=== PATIENT | male | born 1960 | race Caucasian/White ===

== ENCOUNTER 2019-09-01 09:59 | Outpatient (CLI) | payer BC ==
--- NOTE | 2019-09-01 16:03 | XRAY Report ---
Reason: PAINFUL LEFT THUMB CMC JOINT OA Procedure Date: 09/01/2019 Accession Number: [id number] / [id number] Procedure: XR - Finger(s) LT CPT Code: Final Report FULL RESULT: EXAM: LEFT FIRST DIGIT RADIOGRAPHY EXAM DATE: 09/01/2019 10:28 AM. CLINICAL HISTORY: PAINFUL LEFT THUMB, CMC JOINT OA. COMPARISON: None. TECHNIQUE: 1 view. FINDINGS: Bones: No acute fracture is demonstrated. There is a surgical anchor at the base of the first metacarpal, which may represent sequela of previous ligament or tendon repair. Joints: No dislocation or subluxation demonstrated. The first CMC joint is better assessed on wrist radiograph. Soft Tissues: Unremarkable. IMPRESSION: No acute osseous or articular abnormality by single AP view of the left first finger. Please refer to dedicated wrist radiograph for further details on the first CMC joint. RADIA
--- NOTE | 2019-09-01 16:06 | XRAY Report ---
Reason: resection arthroplasty, thumb pain Procedure Date: 09/01/2019 Accession Number: [id number] / [id number] Procedure: XR - Wrist 3 View LT CPT Code: Final Report FULL RESULT: EXAM: LEFT WRIST RADIOGRAPHY EXAM DATE: 09/01/2019 10:28 AM. CLINICAL HISTORY: Resection arthroplasty, thumb pain. COMPARISON: None. TECHNIQUE: 3 views. FINDINGS: Bones: The trapezium has been resected. There is mild sclerosis at the base of the first metacarpal, which may represent sequela of previous first CMC joint arthritis. A surgical anchor is present at the lateral (radial) base of the first metacarpal. Joints: Overall alignment is within normal limits. No significant degenerative change demonstrated elsewhere in the left wrist. Soft Tissues: Unremarkable. IMPRESSION: Absence of the left trapezium, compatible with history of resection arthroplasty. No acute osseous or articular abnormality demonstrated. RADIA
== END 2019-09-01 10:00 | disposition home or self-care (01) ==
LOC: DI 09:59
PROVIDERS: ATTEND Orthopaedic Surgery
DX: M79.645 Pain in left finger(s) (principal); M18.12 Unilateral primary osteoarthritis of first carpometacarpal joint, left hand; Z98.890 Other specified postprocedural states
CPT/HCPCS: 73140

== ENCOUNTER 2019-11-02 20:00 | Outpatient (CLI) | payer BC ==
--- NOTE | 2019-11-04 03:32 | XRAY Report ---
Reason: Left wrist pain, left thumb CMC joint subluxation, early OA Procedure Date: 11/02/2019 Accession Number: [id number] / [id number] Procedure: XR - Wrist 4 View LT CPT Code: Final Report FULL RESULT: EXAM: LEFT WRIST RADIOGRAPHY EXAM DATE: 11/02/2019 08:43 PM. CLINICAL HISTORY: Left wrist pain, left thumb CMC joint subluxation, early OA. COMPARISON: WRIST 3 VIEW LT 09/01/2019 10:14 AM. TECHNIQUE: 4 views. FINDINGS: Bones: No fracture seen. No focal area of bone destruction. There appears to be resection of the trapezium. Metal anchor at the base of the first metacarpal. Joints: No dislocation seen. Minimal degenerative changes are suspected at the articulation between the scaphoid and the trapezoid. Mild irregularity at the base of the first metacarpal probably due to degenerative changes. Soft Tissues: Mild soft tissue swelling. IMPRESSION: 1. Resection of the trapezium. 2. No acute abnormality seen. RADIA
== END 2019-11-02 20:01 | disposition home or self-care (01) ==
LOC: DI 20:00
PROVIDERS: ATTEND Orthopaedic Surgery
DX: M25.532 Pain in left wrist (principal); M18.12 Unilateral primary osteoarthritis of first carpometacarpal joint, left hand

== ENCOUNTER 2021-07-06 11:32 | Outpatient (CLI) | payer BC ==
--- NOTE | 2021-07-06 14:53 | XRAY Report ---
PROCEDURE: Lumbar Spine 2 View INDICATIONS: LUMBAR SPINE 2 VEIW TECHNIQUE: 3 views of the lumbar spine were acquired. COMPARISON: None. FINDINGS: Bones: 5 [id number] vertebrae are present. There is trace retrolisthesis of L3 on L4. Severe d isc space narrowing is present at L5-S1. Minimal foraminal narrowing is noted. No vertebral body comp ression fractures. No suspicious bony lesions. Soft tissues: Overlying bowel gas pattern is normal. No suspicious soft tissue calcifications. IMPRESSION: Degenerative changes most notable at L5-S1. Reviewed by: Renetta See MD on 07/06/2021 2:51 PM PST Approved by: Renetta See MD on 07/06/2021 2:51 PM PST Station ID: [id number]
== END 2021-07-06 11:33 | disposition home or self-care (01) ==
LOC: DI 11:32
DX: M43.16 Spondylolisthesis, lumbar region (principal); M51.37 Other intervertebral disc degeneration, lumbosacral region

== ENCOUNTER 2021-09-01 11:11 | Outpatient (CLI) | payer BC ==
--- NOTE | 2021-09-02 13:45 | MRI Report ---
PROCEDURE: Lumbar Spine W/O INDICATIONS: SPONDYLOSIS OF LUMBAR SPINE TECHNIQUE: Noncontrast sagittal T1 spin echo and T2 fast echo, sagittal STIR, axial T1 and T2 fast spin echo thr ough the lumbar spine. In cases with scoliosis, additional coronal T2 fast spin echo may be performe d. COMPARISON: None. FINDINGS: In the L1 vertebral body there is a 1.7 cm lesion which demonstrates low T1 signal intensity and elev ated T2 signal with increase in relative signal compared with the adjacent normal marrow on the fat-s uppressed images. This likely represents a lipid poor hemangioma, although this is not definitive. Re cently obtained x-rays from 07/06/2021 demonstrate no corresponding suspicious lytic or blastic lesion . Otherwise normal bone marrow signal intensity. Normal vertebral body height and alignment. Normal pos ition and appearance of the conus. Regional soft tissues are normal. T12-L1: No spinal canal or neural foraminal stenosis. L1-L2: No spinal canal or neural foraminal stenosis. L2-L3: No spinal canal or neural foraminal stenosis. L3-L4: No spinal canal or neural foraminal stenosis. L4-L5: Disc bulge flattens the ventral thecal sac without significant mass effect upon the traversi ng L5 nerve roots. There is a synovial cyst arising from the medial margin of the right L4-L5 facet m easuring approximately 8 mm, which mildly displaces the descending right L5 nerve root anteriorly, an d combines with the disc bulge to produce overall moderate right subarticular zone stenosis. There is no neural foraminal narrowing. Overall moderate facet hypertrophy with small facet effusions and sub chondral cystic change. L5-S1: Disc bulge flattens the ventral thecal sac and mildly displaces the descending S1 nerve root s within both subarticular zones. Mild bilateral neural foraminal stenosis. IMPRESSION: Facet osteoarthritis at the L4-L5 with an associated 8 mm synovial cyst arising from the medial preethi n of the right L4-L5 facet, which displaces the descending right L5 nerve roots and contributes to mo derate right subarticular zone stenosis. 4 likely corresponding right L5 reticular symptoms. Reviewed by: Kan Medina MD on 09/02/2021 1:43 PM PST Approved by: Kan Medina MD on 09/02/2021 1:43 PM PST Station ID: [id number]
== END 2021-09-01 11:12 | disposition home or self-care (01) ==
LOC: DI 11:11
PROVIDERS: ATTEND Orthopaedic Surgery
DX: M47.816 Spondylosis without myelopathy or radiculopathy, lumbar region (principal); M71.38 Other bursal cyst, other site; M48.07 Spinal stenosis, lumbosacral region; M48.061 Spinal stenosis, lumbar region without neurogenic claudication

== ENCOUNTER 2021-11-04 22:14 | Observation (INO) | payer BC ==
[2021-11-04 22:42] LABS: BASOPHILS % (AUTO) 0.7 %; EOSINOPHILS # (AUTO) 0.2 10^3/uL (0.0-0.7); EOSINOPHILS % (AUTO) 4.2 %; HCT - HEMATOCRIT 42.9 % (42.0-52.0); HGB - HEMOGLOBIN 14.4 g/dL (14.0-18.0); LYMPHOCYTES # (AUTO) 1.9 10^3/uL (1.5-3.5); LYMPHOCYTES % (AUTO) 33.4 %; MEAN CORPUSCULAR HEMOGLOBIN 30.2 pg (27.0-31.0); MEAN CORPUSCULAR HGB CONC 33.6 g/dL (32.0-36.0); MEAN CORPUSCULAR VOLUME 89.9 fL (80.0-94.0); MONOCYTES # (AUTO) 0.5 10^3/uL (0.0-1.0); MONOCYTES % (AUTO) 8.1 %; NEUTROPHILS % (AUTO) 52.9 %; PLT - PLATELET COUNT 272 10^3/uL (130-450); RED BLOOD COUNT 4.77 10^6/uL (4.70-6.10); RED CELL DISTRIBUTION WIDTH 12.5 % (12.0-15.0); WHITE BLOOD COUNT 5.7 x10^3/uL (4.8-10.8)
[2021-11-04] MEDS ORDERED: ASPIRIN CHEW 81 MG TABLET PO STA (22:43)
[2021-11-04 22:58] LABS: ALBUMIN 4.2 g/dL (3.2-5.5); ALBUMIN/GLOBULIN RATIO 1.4 (1.0-2.2); BILIRUBIN,TOTAL 0.6 mg/dL (0.2-1.0); CALCIUM 9.3 mg/dL (8.5-10.3); CREATININE 0.9 mg/dL (0.6-1.2); POTASSIUM 4.2 mmol/L (3.5-5.0); TOTAL PROTEIN 7.1 g/dL (6.7-8.2)
--- NOTE | 2021-11-04 22:59 | XRAY Report ---
PROCEDURE: Chest 1 View X-Ray INDICATIONS: Chest pain TECHNIQUE: One view of the chest was acquired. COMPARISON: 10/25/2015. FINDINGS: Surgical changes and devices: None. Lungs and pleura: No pleural effusions or pneumothorax. Lungs are clear. Mediastinum: Mediastinal contours appear normal. Heart size is normal. Bones and chest wall: No suspicious bony lesions. Overlying soft tissues appear unremarkable. IMPRESSION: 1. No acute cardiopulmonary disease. Reviewed by: Cong Owusu MD on 11/04/2021 10:58 PM PDT Approved by: Cong Owusu MD on 11/04/2021 10:58 PM PDT Station ID: [id number]
--- NOTE | 2021-11-05 | ED Physician Documentation ---
PD HPI CHEST PAIN - Stated complaint Stated Complaint: CP/HEADACHE - Chief complaint Chief Complaint: Cardiac - History obtained from History obtained from: Patient - Additional information Additional information: Patient is a 61-year-old male with a history of hyperlipidemia presenting for evaluation of chest pain. Patient reports first episode was last night around midnight and woke him up from his sleep. He describes it in the middle of his chest and felt sharp. It lasted for several hours. He reported associated diaphoresis. Nothing made the pain better or worse and it did not radiate el sewhere. It did resolve on its own. He felt fine through the day but again this evening around 930 at rest he again felt midsternal chest pain that radiated to his jaw.Lasted for 1 hour and resolved just prior to evaluation in the emergency department. He does not currently take any medications. In 2019 he had similar episodes of chest pain and had a CT coronary which showed a less than 50% stenosis of his LAD. There was recommended that he be on a statin but patient did not want to take medication at that time and reports losing weight on his own since that time. He does not take aspirin regularly. He denies other episodes of chest pain. He denies fever, cough, difficulty breathing, abdominal pain, vomiting or diarrhea.Denies leg swelling, history of PE or DVT, recent travel or immobilization. Review of Systems Constitutional: denies: Fever Nose: denies: Congestion Cardiac: reports: Chest pain / pressure. denies: Palpitations Respiratory: denies: Dyspnea, Cough GI: denies: Abdominal Pain, Vomiting : denies: Dysuria Skin: denies: Rash Musculoskeletal: denies: Back pain Neurologic: denies: Syncope, Headache PD PAST MEDICAL HISTORY - Past Medical History Past Medical History: Yes Cardiovascular: High cholesterol Respiratory: None Neuro: None Endocrine/Autoimmune: None GI: None : None HEENT: None Psych: None Musculoskeletal: None Derm: None - Past Surgical History Past Surgical History: Yes General: Other Ortho: Other - Present Medications Home Medications: Ambulatory Orders Medication Instructions Recorded Confirmed oxyCODONE/ACET 5/325 [Percocet 5 1 - 2 each PO Q6H PRN #20 tablet 10/25/16 mg/325 mg] - Allergies Allergies/Adverse Reactions: Allergies Allergy/AdvReac Type Severity Reaction Status Date / Time No Known Drug Allergies Allergy Verified 05/11/22 22:22 - Social History Does the pt smoke?: No Smoking Status: Never smoker Does the pt drink ETOH?: Yes Does the pt have substance abuse?: No - Immunizations Immunizations are current?: No - POLST Patient has POLST: No PD ED PE NORMAL - General General: Alert and oriented X 3, No acute distress, Well developed/nourished - HEENT HEENT: Atraumatic, Moist mucous membranes - Neck Neck: Supple, no meningeal sign - Cardiac Cardiac: RRR, No murmur, Strong equal pulses, Other (No crepitus, no chest wall tenderness or rash) - Respiratory Respiratory: No respiratory distress, Clear bilaterally - Abdomen Abdomen: Normal bowel sounds, Soft, Non tender - Derm Derm: Warm and dry - Extremities Extremities: No edema, No calf tenderness / cord - Neuro Neuro: Normal speech - Psych Psych: Normal mood Results - Vitals Vitals: Vital Signs - 24 hr 11/04/21 11/04/21 11/04/21 22:17 22:35 22:57 Temperature 36.9 C Heart Rate 63 67 Respiratory 14 15 16 Rate Blood Pressure 154/92 H 145/87 H O2 Saturation 98 98 11/04/21 11/04/21 23:50 23:56 Temperature Heart Rate 60 57 L Respiratory 17 17 Rate Blood Pressure 141/89 H O2 Saturation 96 97 Oxygen O2 Source Room air - EKG (time done) 2221 Rate: Rate (enter#) (63) Rhythm: NSR Ischemia: T wave inversion, Non specific changes (1, aVLT wave flattening in V5 and V6) Compare to prior EKG: Other (Old EKG unavailable through [employer] but patient was able to pull up records from 2019 on his phone with image of previous EKG. T wave inversions patient's previously seen in leads I and aVL, flattening is new in V5 and V6) - Labs Labs: Laboratory Tests 11/04/21 11/04/21 11/04/21 00:15 22:35 22:35 WBC 5.7 RBC 4.77 Hgb 14.4 Hct 42.9 MCV 89.9 MCH 30.2 MCHC 33.6 RDW 12.5 Plt Count 272 MPV 10.0 Neut # (Auto) 3.0 Lymph # (Auto) 1.9 Franklin # (Auto) 0.5 Eos # (Auto) 0.2 Baso # (Auto) 0.0 Absolute Nucleated RBC 0.00 Nucleated RBC % 0.0 Sodium 137 Potassium 4.2 Chloride 101 Carbon Dioxide 28 Anion Gap 8.0 BUN 21 H Creatinine 0.9 Estimated GFR (MDRD) 86 L Glucose 99 Calcium 9.3 Total Bilirubin 0.6 AST 18 ALT 19 Alkaline Phosphatase 38 L Troponin I High Sens 4.7 Total Protein 7.1 Albumin 4.2 Globulin 2.9 Albumin/Globulin Ratio 1.4 Lipase 43 11/04/21 22:35 WBC RBC Hgb Hct MCV MCH MCHC RDW Plt Count MPV Neut # (Auto) Lymph # (Auto) Franklin # (Auto) Eos # (Auto) Baso # (Auto) Absolute Nucleated RBC Nucleated RBC % Sodium Potassium Chloride Carbon Dioxide Anion Gap BUN Creatinine Estimated GFR (MDRD) Glucose Calcium Total Bilirubin AST ALT Alkaline Phosphatase Troponin I High Sens 3.8 Total Protein Albumin Globulin Albumin/Globulin Ratio Lipase PD MEDICAL DECISION MAKING - ED course Complexity details: reviewed results, d/w patient ED course: Patient is a 61-year-old male presenting for evaluation of chest pain. Based on heart score he is in the moderate range with Score of 4. No previous EKGs were available for comparison but patient was able to pull 1 up on his phone from 2019. New findings of T wave flattening in V5 and V6. T wave inversion seen in leads I and aVL were seen on previous EKG. Initial high-sensitivity troponin is reassuring and negative. Patient has been pain-free here. Given moderate heart score discussed with hospitalist for Observation for cardiac work-up. Dr. Jackson will see the patient. Departure - Departure Disposition: ED Place in Observation Clinical Impression: Chest pain Qualifiers: Chest pain type: unspecified Qualified Code(s): R07.9 - Chest pain, unspecified Condition: Stable Discharge Date/Time: 11/05/21 00:45
[2021-11-05] MEDS ORDERED: ONDANSETRON 4 MG/2 ML VIAL IVP PRN (00:04)
[2021-11-05] MEDS ORDERED: ONDANSETRON ODT 4 MG TABLET TL PRN (00:04)
[2021-11-05] MEDS ORDERED: MORPHINE 2 MG/ML CARPUJECT IVP PRN (00:04)
[2021-11-05] MEDS ORDERED: ACETAMINOPHEN 325 MG TABLET PO PRN (00:04)
[2021-11-05] MEDS ORDERED: oxyCODONE 5 MG TABLET PO PRN (00:04)
[2021-11-05] MEDS ORDERED: SODIUM CHLORIDE FLUSH 0.9% 10 ML SYRINGE IVP PRN (00:04)
[2021-11-05] MEDS ORDERED: NITROGLYCERIN SL 0.4 MG TABLET SL PRN (00:04)
[2021-11-05] MEDS: SODIUM CHLORIDE FLUSH 0.9% 10 ML SYRINGE IVP SCH ×2 (00:56→12:31)
[2021-11-05] MEDS ORDERED: SODIUM CHLORIDE 0.9% 1,000 ML IV SCH (01:00)
--- NOTE | 2021-11-05 01:37 | HISTORY & PHYSICAL EXAMINATION ---
Chief Complaint - Chief Complaint Chief Complaint: Chest pain History of Present Illness - Admitted From Admitted From:: Emergency department - History Obtained From History obtained from: Patient Exam Limitations: None - History of Present Illness HPI Comment/Other: 61 year old male presents with intermittent substernal chest pain over the past 24 hours. The patient has a history of hyperlipidemia. He had a previous cardiac workup 3 years ago, including cardiac stress test that showed 50% occlusion of LAD. The first episode of chest pain was 4 hours and was accompanied by a headache. The patient experienced a shorter episode the following morning and decided to visit the emergency department on 11/04 after another episode with pain radiating to the jaw. The patient reports that pain was only alleviated by lying prone. He is not currently symptomatic. He denies shortness of breath, syncope, abdominal pain, vision changes, abdominal pain, peripheral edema, and all other ROS. History - Past Medical History Cardiovascular: reports: High cholesterol Respiratory: reports: None Neuro: reports: None Endocrine/Autoimmune: reports: None GI: reports: None : reports: None HEENT: reports: None Psych: reports: None Musculoskeletal: reports: None Derm: reports: None MRSA Hx?: No - Past Surgical History General: reports: Other Ortho: reports: Other - Family & Social History Family History: Mother: Hypertension, Father: , Sister: Alive and Well, Brother: Alive and Well Living arrangement: At home Living Situation: With spouse/s.o. - Substance History Use: Uses substance without health or social issues: NONE Abuse: Recurrent use of substance despite neg consequences: NONE Dependence: Experiences withdrawal or developed tolerances: NONE - POLST Patient has POLST: No Meds/Allgy - Home Medications Home Medications: Ambulatory Orders Medication Instructions Recorded Confirmed oxyCODONE/ACET 5/325 [Percocet 5 1 - 2 each PO Q6H PRN #20 tablet 10/25/16 mg/325 mg] - Allergies Allergies/Adverse Reactions: Allergies Allergy/AdvReac Type Severity Reaction Status Date / Time No Known Drug Allergies Allergy Verified 11/04/21 22:22 Review of Systems - Constitutional Constitutional: reports: Diaphoresis. denies: Fever, Chills, Malaise, Weakness, Night sweats - Eyes Eyes: reports: Other (None) - Ears, Nose & Throat Ears, Nose & Throat: reports: Other (none) - Cardiovascular Cariovascular: reports: Chest pain. denies: Irregular heart rate, Palpitations, Edema, Syncope - Respiratory Respiratory: reports: Other (none). denies: Cough - Gastrointestinal Gastrointestinal: denies: Abdominal pain, Nausea, Vomiting - Genitourinary Genitourinary: reports: Other (none) - Musculoskeletal Musculoskeletal: reports: Other (none) - Integumentary Integumentary: reports: Other (none) - Neurological Neurological: reports: Other (none) - Psychiatric Psychiatric: reports: Other (none) - Endocrine Endocrine: reports: Other (none) - Hematologic/Lymphatic Hematologic/Lymphatic: reports: Other (none) - All Other Systems All Other Systems: reports: Reviewed and negative Prior Level of Functionality: Patient lives at home with spouse and has no functional impairments. Exam - Vital Signs Reviewed Vital Signs: Yes Vital Signs: Vital Signs x48h Temp Pulse Pulse Resp BP BP Pulse Ox 11/05/21 01:09 36.5 C 58 L 18 141/74 H 98 11/04/21 23:56 57 L 17 97 11/04/21 23:50 60 17 141/89 H 96 11/04/21 22:57 16 11/04/21 22:35 67 15 145/87 H 98 11/04/21 22:17 36.9 C 63 14 154/92 H 98 - Physical Exam General Appearance: positive: No acute distress Eyes Bilateral: positive: Normal inspection Neck: positive: Nml inspection, No JVD Respiratory: positive: Chest non-tender, No respiratory distress, Breath sounds nml. negative: Wheezes, Rales, Rhonchi Cardiovascular: positive: Regular rate & rhythm, No murmur, No gallop. negative: Irregularly irregular, Extrasystoles, Bradycardia, JVD present, Gallop/S4, Friction rub Peripheral Pulses: positive: 2+ Abdomen: positive: Non-tender, Nml bowel sounds, No distention. negative: Tenderness, Guarding Skin: positive: Warm, Dry Extremities: positive: Non-tender, Nml appearance, No pedal edema. negative: Joint swelling Neurologic/Psychiatric: positive: Oriented x3, CN's nml (2-12), Mood/affect nml Conclusion/Plan - Problem List (1) Chest pain Conclusion/Plan: A 61 year old male presents to the emergency department with intermittent brady bsternal chest pain over the past 24 hours that was associated with mild headache, jaw pain, and diaphoresis. He has a history of hyperlipidemia and experienced a similar episode 3 years ago, for which he received an unremarkable cardiac work up. He a not a smoker, has no history of diabetes, hypertension, family or personal history of heart disease. ROS is negative for fever, chills, shortness of breath, difficulty breathing, cough, palpitations, syncope, edema, abdominal pain, and weakness. The patient is not currently experiencing symptoms. Physical exam is unremarkable and the patient is in no acute distress. Pulmonary embolism is unlikely, as the patient is not experiencing shortness of breath, cough, or edema. Pain is not likely caused by pleurisy, as pneumonia is unlikely. Myocardial infarction is not likely as the patient's ECG is unchanged from prior studies and troponin normal. Presentation is not consistent with biliary colic caused by gall stones. The patient will be observed to trend troponin. Qualifiers: Chest pain type: unspecified Qualified Code(s): R07.9 - Chest pain, unspecified - Lab Results Lab results reviewed: Yes Agus Bones: 11/04/21 22:35 11/04/21 22:35 Core Measures - Anticipated LOS I expect patient to be DC'd or transferred within 96 hours.: Yes - DVT/VTE - Prophylaxis VTE/DVT Device ordered at admit?: Yes
[2021-11-05 06:07] LABS: CALCIUM 9.4 mg/dL (8.5-10.3); CREATININE 0.9 mg/dL (0.6-1.2); POTASSIUM 4.6 mmol/L (3.5-5.0)
[2021-11-05] MEDS ORDERED: ASPIRIN EC 81 MG TABLET PO SCH (09:00)
[2021-11-05 09:08] LABS: CHOL/HDL RATIO 5.2 (<5.0); CHOLESTEROL 240 mg/dL; HDL CHOLESTEROL 46 mg/dL; LDL CHOLESTEROL,CALCULATED 148 mg/dL; LDL/HDL RATIO 3.2 (<3.6); TRIGLYCERIDES 228 mg/dL; VLDL CHOLESTEROL 46 mg/dL
--- NOTE | 2021-11-05 11:18 | CARDIAC PROCEDURE NOTE ---
Stress Test Report Service Date: 11/05/21 Service Time: 10:00 Ordering Provider: Ashley Jackson MD Indication for Test: Assess recurrent chest discomfort in patient with previous documentation of 50% LAD stenosis in 2018. Significant Medical History: Mr Ryan was evaluated in August 2019, after several episodes of chest discomfort. He reports undergoing a coronary CT angiogram; the report that he shares indicates a 50% narrowing in the second diagonal, without significant obstruction of the LAD, LCx or RCA. He was seen by a box cutter (Dr Merline Garcia) but has not been on treatment with a statin or ASA. He has maintained an active lifestyle, including road and mountain biking, hiking and taking care of his property. He feels that his stamina remains intact and he has not had exertional chest discomfort. Two nights ago he awoke from sleep with a heavy substernal chest discomfort, that lasted about two hours. He was able to return to sleep and felt okay yesterday, but the discomfort returned yesterday evening prompting a visit to our E.D. for evaluation. EKG was not interpreted as ischemic and serial troponins were negative. He has been pain-free since presentation, and has now been loaded with ASA (325->81 mg) and started on atorvastatin at 40 mg daily. Cardiac Risk Factors: Known CAD in his second diagonal branch; untreated hyperlipidemia (last LDLc reportedly ~160 mg/dL). No known history of HTN, diabetes, smoking ever or major ASCVD family history. Type of Stress Test: ETT with Myocardial Perfusion Imaging Procedure: -Exercise Treadmill Test- After signing informed consent, the patient underwent rest SPECT imaging and then performed treadmill exercise using a Vladimir protocol. The patient exercised for 7 minutes 4 seconds and achieved a peak heart rate of 143 (90 percent predicted maximum heart rate for age), and an estimated workload of 8.7 METS. The test was terminated due to ST depression appearing ischemic, having achieved his target heart rate. Resting heart rate: 76 Peak heart rate: 143 Normal response to exercise. Resting BP: 165/97 Peak BP: 232 (systolic), 125 (diastolic) Hypertensive at rest with hypertensive BP response to exercise. Rhythm during exercise: Sinus rhythm throughout. Symptoms: Some dyspnea but NO chest discomfort reported. EKG at rest showed normal sinus rhythm, borderline nonspecific intraventricular conduction delay, biphasic-flat anterolateral T waves, with 0.5-1.[address] depression in leads V5 and V6. EKG at peak stress showed horizontal ST depression of >1.5 mm in leads V4-V6, meeting diagnostic criteria for ischemia. In Recovery ST segments were returning to baseline, but there was T-wave inversion, increasing the likelihood of significant ischemia. Patient was quickly returned to his hospital room and given one SL NTG. Nuclear imaging performed at rest and with stress and will be reported separately. IDane MD, was present throughout this treadmill stress study and supervised it in its entirety. Summary: 1) Exercise tolerance moderately reduced for age and sex, as evidenced by LUZ MARIA of 13%. 2) Abnormal resting EKG. 3) Adequate level of exercise was achieved on this treadmill stress test. 4) Hypertensive at rest, with abnormal exaggerated increases of systolic and diastolic BP in response to exercise. 5) Ischemic changes by EKG criteria were seen at peak stress, with ST depression followed by T-wave inversion. 6) Analysis of gated nuclear images reveals normal left ventricular size and systolic function with left ventricular ejection fraction 60%; formal SPECT analysis by Radiologist reveals a moderate-sized, primarily fixed defect in the anterior septum, with partial reduction in the prone position. This is interpreted as a small infarct with minimal inducible ischemia. See separate report for more detail. CONCLUSIONS: 1) Abnormal response of BP and EKG to Vladimir protocol, with ST depression followed by T-wave inversion, suggestive of inducible ischemia. 2) Per Radiologist, SPECT imaging suggests a small-moderate area of likely infarct, with minimal ischemic component. 3) Results reviewed with Radiologist (Dr Capellan), [facility] provider (Dr Gaines) and patient's outpatient box cutter (Dr Garcia) on the day of the study. Plan is for patient to be discharged on new therapies to include ASA, atorvastatin, metoprolol succinate and prn SL NTG; Dr Garcia will arrange for patient to be seen in her clinic in the next 10-14 days, with discussion of potential additional workup. SPECT images were sent to the [facility] PACS system, for review.
[2021-11-05] MEDS ORDERED: NITROGLYCERIN SL 0.4 MG TABLET SL STA (12:03)
[2021-11-05 12:41] VITALS: BP 120/66
[2021-11-05] MEDS ORDERED: METOPROLOL TARTRATE 25 MG TABLET PO SCH (13:00)
[2021-11-05] MEDS ORDERED: [UNRECOGNIZED DRUG - OTHER] IVP ONE (13:05)
--- NOTE | 2021-11-05 13:05 | PHARMACY PROGRESS NOTE ---
- Best Possible Medication History Admit Date and Time: 11/05/21 0004 Processed by: Pharmacy Medication History completed: Yes Patient Interview: Pt interview ONLY source As the person ultimately responsible for medication therapy, providers are able to order a medication from an existing home medication list in [facility] via the "Reconcile Routine" prior to Confirmation of that medication by business support coordinator. Such practice is discouraged except when the physician, in their clinical judgment, deems that a medical need exists for a medication without regard to previous use.
--- NOTE | 2021-11-05 14:44 | Nuclear Medicine Report ---
PROCEDURE: Rest and exercise myocardial perfusion SPECT with gated imaging and ejection fraction INDICATIONS: Chest pain. RADIOPHARMACEUTICAL: 11.4 mCi Tc-99m Myoview IV at rest and 35.0 mCi Tc-99m Myoview IV at peak exerc ise. [id number] was performed. TECHNIQUE: Radiopharmaceutical was injected at peak stress test, and also at rest. SPECT images wer e obtained. SPECT myocardial perfusion images were displayed in short axis, horizontal long axis, an d vertical long axis views. Gated images were reviewed using Auto[employer] software. COMPARISON: None available. FINDINGS: Raw data: There is good myocardial labeling by radiotracer. No significant motion artifacts. Lung- to-heart ratio is 0.27 (normal is less than 0.46 for tetrafosmin tracer). Left ventricle function: Gated images demonstrate normal left ventricle wall thickening. No segment al wall motion abnormality. No transient ischemic dilation; TID is 0.88 (normal less than 1.30). Th e left ventricle resting end-diastolic volume is 97 mL. Left ventricle stress ejection fraction is 6 0%; normal values are above 45%. Myocardial perfusion: There is a moderate size, moderately severe, fixed perfusion defect in the ant erior septum. On plain imaging, the defect is decreased but not completely resolved. No reversible pe rfusion defects to suggest myocardial ischemia. IMPRESSION: 1. Probably abnormal myocardial perfusion images. There is a moderate size, moderately severe, decrea sed activity in the anterior septum. On prone imaging, it is improved but not resolved. This could re present a small myocardial infarct. A differential diagnosis is attenuation artifact. 2. No reversible perfusion defect to suggest myocardial ischemia. 3. Normal left ventricular volume and systolic function. 4. Please correlate with stress EKG result. The result was discussed with Dr. Camarillo. PQRS ATTESTATIONS: Measure 322 - Is this imaging test primarily performed on a low-risk surgery patient for preoperative evaluation within 30 days preceding their low-risk non-cardiac surgery? Low-risk surgery is defined as cardiac or myocardial infarction less than 1%, including (but not limited to) endoscopic pr ocedures, superficial procedures, cataract surgery, and excisional breast surgery: Answer: No Measure 323 - Is this imaging test performed primarily for the monitoring of an asymptomatic patient who had percutaneous coronary intervention on the visit date or within 2 years of the visit date? An swer: No Measure 324 - Is this imaging test performed primarily for the initial detection and risk assessment on an asymptomatic, low coronary heart disease patient? Low CHD risk definition = clinicians should consider the maximum number of available patient factors used to estimate risk based on [place] (A TP III criteria), typically age, gender, diabetes, smoking status, and use of blood pressure medicati on, and integrate age appropriate estimates for missing elements, such as LDL or standard blood press ure. Answer: No Reviewed by: Ashutosh Capellan MD on 11/05/2021 1:43 PM AKHERIBERTO Approved by: Ashutosh Capellan MD on 11/05/2021 1:43 PM DWAYNE Station ID: [id number]
--- NOTE | 2021-11-05 15:16 | Discharge Plan ---
Discharge Plan Problem Reviewed?: Yes Disposition: Home, Self Care Condition: Stable Prescriptions: Nitroglycerin [Nitrostat] 0.4 mg SL Q5MIN PRN #30 tablet PRN Reason: Chest Pain Aspirin EC [Ecotrin] 81 mg PO DAILY #30 tablet Atorvastatin [Lipitor] 40 mg PO QPM #30 tablet Metoprolol Succinate [Toprol Xl] 50 mg PO DAILY #30 tablet Diet: Cardiac Activity Restrictions: Activity as Tolerated Health Concerns: You were admitted to the hospital because of chest pain. Your heart numbers were normal. You underwent a stress test which suggested there may be some evidence of heart disease but it was felt that there was not any evidence of active ischemia or low blood flow to your heart. We recommend you take the medications prescribed as below. The manager business banking here has contacted your c ardiologist and they will be calling you to schedule an appointment within the next 10 days. Plan of Treatment: Please take aspirin 81 mg once a day. Please take Lipitor 40 mg in the evening. I have also prescribed you nitroglycerin to take sublingual if you do have chest pain. Please also take metoprolol 50 mg once a day. If your heart rate does get below the 50s then you can hold this. You can also stop taking this if you develop dizziness or lightheadedness or episodes of passing out. Assessment: The patient and family expressed understanding of the treatment plan. Additional Instructions or Follow Up instructions: Please follow-up with your manager business banking when they contact you to schedule a follow-up appointment. Please return to the emergency department if you do develop chest pain or shortness of breath. No Smoking: If you smoke, Please STOP! Call for help. Follow-up with: Celso Zambrano MD [Primary Care Provider] -
--- NOTE | 2021-11-05 15:16 | DISCHARGE SUMMARY ---
"Discharge Summary Admit Date: 11/05/21 Discharge Date: 11/05/21 Discharging Provider: Vinh Cali Primary Care Provider: Celso Zambrano Code Status: Attempt Resuscitation Condition at Discharge: Stable Discharge Disposition: 01 Home, Self Care - DIAGNOSES Admission Diagnoses: Chest pain Discharge Diagnoses with Status of Each Condition: Chest pain - resolved. Abnormal stress test - stable. Hyperlipidemia - stable. - HPI History of Present Illness: 61 year old male presents with intermittent substernal chest pain over the past 24 hours. The patient has a history of hyperlipidemia. He had a previous cardiac workup 3 years ago, including cardiac stress test that showed 50% occlusion of LAD. The first episode of chest pain was 4 hours and was accompanied by a headache. The patient experienced a shorter episode the following morning and decided to visit the emergency department on 11/04 after another episode with pain radiating to the jaw. The patient reports that pain was only alleviated by lying prone. He is not currently symptomatic. He denies shortness of breath, syncope, abdominal pain, vision changes, abdominal pain, peripheral edema, and all other ROS. - CONSULTS | PROCEDURES Procedures: Exercise stress test revealed: 1) Exercise tolerance moderately reduced for age and sex, as evidenced by LUZ MARIA of 13%. 2) Abnormal resting EKG. 3) Adequate level of exercise was achieved on this treadmill stress test. 4) Hypertensive at rest, with abnormal exaggerated increases of systolic and diastolic BP in response to exercise. 5) Ischemic changes by EKG criteria were seen at peak stress, with ST depression followed by T-wave inversion. 6) Nuclear image interpretation to be reported separately. PRELIMINARY CONCLUSIONS: 1) Abnormal response of BP and EKG to Vladimir protocol, with ST depression followed by T-wave inversion, increasing likelihood significant inducible ischemia. 2) Further triage pending, once SPECT images are obtained/reviewed. Myocardial perfusion imaging revealed: Probably abnormal myocardial perfusion images. There is a moderate sized, moderately severe, decreased activity in the anterior septum. On prone imaging, it is improved but not resolved. This could represent a small myocardial infarct. Differential diagnosis attenuation artifact. No reversible perfusion defects suggest myocardial ischemia Normal left trickle volume and systolic function. Please correlate with stress EKG result. - HOSPITAL COURSE Hospital Course: Patient was admitted under observation for chest pain. Serial troponins were negative. He underwent an exercise stress test with the results as mentioned above. There was concern for some evidence of ischemia but the patient had no chest pain with activity. He did have ST depressions and this was followed by T wave inversion which increase likelihood of having significant disc ischemia. Myocardial perfusion imaging revealed what was mentioned above under reports. This was discussed with Dr. Camarillo. It was felt that the patient could be discharged home with medical management including aspirin, Lipitor, Toprol as well as nitroglycerin as needed. Dr. Camarillo personally spoke with the patient's ladies underwear operator, Dr. Garcia, and she will be contacting the patient to schedule follow-up within the next 10 days. I discussed with the patient that if he were to develop chest pain to immediately return to the emergency department as he would then require expedited work-up which would mean transfer to high-level care for an angiogram. Both him and his were in agreement with this plan. - ALLERGIES Allergies/Adverse Reactions: Allergies Allergy/AdvReac Type Severity Reaction Status Date / Time No Known Drug Allergies Allergy Verified 11/04/21 22:22 - MEDICATIONS Home Medications: Ambulatory Orders Medication Instructions Recorded Confirmed Aspirin EC [Ecotrin] 81 mg PO DAILY #30 tablet 11/05/21 Atorvastatin [Lipitor] 40 mg PO QPM #30 tablet 11/05/21 Ibuprofen [Advil] 400 mg PO Q4H PRN 11/05/21 11/05/21 Metoprolol Succinate [Toprol Xl] 50 mg PO DAILY #30 tablet 11/05/21 Naproxen Sodium [Aleve] 220 mg PO QPM PRN 11/05/21 11/05/21 Nitroglycerin [Nitrostat] 0.4 mg SL Q5MIN PRN #30 tablet 11/05/21 - PHYSICAL EXAM AT DISCHARGE General Appearance: positive: No acute distress, Alert Eyes Bilateral: positive: Normal inspection, Conjunctivae nml ENT: positive: Pharynx nml Neck: positive: Nml inspection Respiratory: positive: No respiratory distress. negative: Wheezes, Rales Cardiovascular: positive: Regular rate & rhythm, No murmur. negative: Tachycardia, Systolic murmur Abdomen: positive: Non-tender, No distention. negative: Tenderness Skin: positive: Warm, Dry Extremities: positive: No pedal edema Neurologic/Psychiatric: positive: Motor nml. negative: Disoriented to person, Disoriented to place, Disoriented to time Physical Exam Other/Comments: Vital Signs - 24 hr 11/04/21 11/04/21 11/04/21 22:17 22:35 22:57 Temperature 36.9 C Heart Rate 63 67 Heart Rate [ Brachial] Respiratory 14 15 16 Rate Blood Pressure 154/92 H 145/87 H Blood Pressure [Left Brachial artery] Blood Pressure [Right Brachial artery] O2 Saturation 98 98 11/04/21 11/04/21 11/05/21 23:50 23:56 01:09 Temperature 36.5 C Heart Rate 60 57 L Heart Rate [ 58 L Brachial] Respiratory 17 17 18 Rate Blood Pressure 141/89 H Blood Pressure 141/74 H [Left Brachial artery] Blood Pressure [Right Brachial artery] O2 Saturation 96 97 98 11/05/21 11/05/21 11/05/21 05:10 07:27 12:16 Temperature 36.7 C 36.6 C Heart Rate 54 L Heart Rate [ 55 L 56 L Brachial] Respiratory 18 20 Rate Blood Pressure 150/87 H Blood Pressure 118/71 120/66 [Left Brachial artery] Blood Pressure [Right Brachial artery] O2 Saturation 97 96 11/05/21 12:40 Temperature 36.6 C Heart Rate Heart Rate [ 78 Brachial] Respiratory 18 Rate Blood Pressure Blood Pressure [Left Brachial artery] Blood Pressure 120/66 [Right Brachial artery] O2 Saturation 93 Oxygen O2 Source Room air - LABS Result Diagrams: 11/04/21 22:35 11/05/21 04:25 - DIAGNOSTIC IMAGING Diagnostic Imaging Results: Final report reviewed - FOLLOW UP Follow Up: The patient will be contacted by his ladies underwear operator for follow-up within the next 10 days. - TIME SPENT Time Spent in Discharge (Minutes): 31"
[2021-11-05] MEDS ORDERED: ATORVASTATIN 40 MG TABLET PO SCH ×2 (21:00)
[2021-11-06] MEDS ORDERED: METOPROLOL SUCCINATE 50 MG TABLET PO SCH (09:00)
== END 2021-11-05 16:13 | disposition home or self-care (01) ==
LOC: ED 22:14 → MS2 11-05 00:04
PROVIDERS: ADMIT Specialist; ATTEND Internal Medicine
DX: R07.89 Other chest pain (principal); R94.39 Abnormal result of other cardiovascular function study; E78.5 Hyperlipidemia, unspecified; I25.10 Atherosclerotic heart disease of native coronary artery without angina pectoris; Z20.822 Contact with and (suspected) exposure to COVID-19
CPT/HCPCS: 36415; 80048; 80053; 80061; 83690; 83721; 84484; 85025; 93005; 93017; 99284

== ENCOUNTER 2023-02-23 13:15 | Outpatient (CLI) | payer BC ==
--- NOTE | 2023-02-23 14:46 | XRAY Report ---
PROCEDURE: Elbow 3 View LT INDICATIONS: PAIN IN LEFT ELBOW TECHNIQUE: 3 views of the elbow were acquired. COMPARISON: None. FINDINGS: Bones: No fractures or dislocations. No suspicious bony lesions. Soft tissues: No effusion. No suspicious soft tissue calcifications or masses. IMPRESSION: No elbow fracture or dislocation. No joint effusion. Reviewed by: Osman Vaz MD on 02/23/2023 2:44 PM PDT Approved by: Osman Vaz MD on 02/23/2023 2:44 PM PDT Station ID: [id number]
== END 2023-02-23 23:59 | disposition home or self-care (01) ==
LOC: DI.S 13:15
PROVIDERS: ATTEND Nurse Practitioner
DX: M25.522 Pain in left elbow (principal)